=== PATIENT | male | born 1970 ===

== ENCOUNTER 2021-09-06 01:57 | Outpatient (CLI) | payer OTHER, SELFPAY | END 2021-09-06 01:58 | disposition home or self-care (01) | LOC: AMB 09-12 20:42 | PROVIDERS: Visit Provider Family Medicine | DX: R07.89 Other chest pain (principal); R11.2 Nausea with vomiting, unspecified; R06.02 Shortness of breath; R51.9 Headache, unspecified; R10.9 Unspecified abdominal pain | CPT/HCPCS: A0425; A0427 ==

== ENCOUNTER 2021-09-06 02:30 | Observation (INO) | payer OTHER, SELFPAY ==
[2021-09-06] VITALS (9 sets, daily range): BP systolic 120–150; BP diastolic 79–100; PULSE 53–71; RESP 16–18; TEMP 36.6–36.7; O2SAT 93–98; BMI 26.5
--- NOTE | 2021-09-06 03:12 | CRLHL7_ITS ---
For Patients: As a result of the Century Cures Act, medical imaging exams and procedure reports are released immediately into your electronic medical record. You may view this report before your referring provider. If you have questions, please contact your health care provider. INDICATION: Status post fall with loss of consciousness. COMPARISON: None available TECHNIQUE: CT examination of the cervical spine is performed without contrast using spiral technique. 1.5 mm thick axial, sagittal and coronal reconstructions were made. Please note that all CT scans at this facility use dose modulation, iterative reconstruction, and/or weight-based dosing when appropriate to reduce radiation dose to as low as reasonably achievable. FINDINGS: : There is no sign of fracture or subluxation. The cervical vertebral bodies and intervertebral discs are normal in height and are in anatomic alignment. There is no sign of prevertebral soft tissue swelling. There is minimal anterior ligamentous ossification at C4-5 and C5-6. The airway structures are normal in appearance. The visualized skull base is normal in appearance. The visualized inferior brain is normal in appearance for the patient`s age. The apices of the lungs are clear. IMPRESSION: Nearly normal CT of the cervical spine with no sign of acute injury. Minimal anterior ligamentous ossification at C4-5 and C5-6. Please note that all CT scans at this facility use dose modulation, iterative reconstruction, and/or weight-based dosing when appropriate to reduce radiation dose to as low as reasonably achievable. Dictated by Mariano Sung MD @ 09/06/2021 3:56:53 AM (Electronically Signed)
--- NOTE | 2021-09-06 03:12 | CRLHL7_ITS ---
For Patients: As a result of the Century Cures Act, medical imaging exams and procedure reports are released immediately into your electronic medical record. You may view this report before your referring provider. If you have questions, please contact your health care provider. INDICATION: Status post fall. Loss of consciousness. COMPARISON: None available. TECHNIQUE: CT examination of the head was performed with 3 mm thick axial and 2 mm thick coronal and sagittal sections without intravenous contrast. Images were obtained from the vertex of the skull through the skull base, and I examined the images with the brain and bone windows. Please note that all CT scans at this facility use dose modulation, iterative reconstruction, and/or weight-based dosing when appropriate to reduce radiation dose to as low as reasonably achievable. FINDINGS: : The brain is normal in appearance for the patient`s age on today`s study, with no sign of mass lesion, mass effect, hemorrhage, or edema. The ventricles and sulci are normal in appearance for the patient`s age. The visualized portions of the orbits are normal in appearance. There is a mild amount of fluid in the dependent portions of both maxillary sinuses from mild acute sinusitis. The rest of the visualized portions of the paranasal sinuses and mastoids are clear. The osseous structures are normal in their appearance with no sign of abnormality in the skull base or calvarium. IMPRESSION: No sign of closed head injury. Normal noncontrast CT appearance of the brain for the patient`s age. Mild acute bilateral maxillary sinusitis. Please note that all CT scans at this facility use dose modulation, iterative reconstruction, and/or weight-based dosing when appropriate to reduce radiation dose to as low as reasonably achievable. Dictated by Mariano Sung MD @ 09/06/2021 3:54:52 AM (Electronically Signed)
--- NOTE | 2021-09-06 03:14 | CRLHL7_ITS ---
For Patients: As a result of the Century Cures Act, medical imaging exams and procedure reports are released immediately into your electronic medical record. You may view this report before your referring provider. If you have questions, please contact your health care provider. HISTORY: Chest pain COMPARISON: None available FINDINGS: A portable erect AP lordotic view of the chest was obtained at 0335 hours. The lungs are clear. No focal or diffuse infiltrates are present. There is no sign of pneumothorax or abnormality of the ribs to correlate with the history of chest pain. The heart is normal in size. The mediastinum is normal in appearance. The osseous structures are normal in appearance for the patient`s age. IMPRESSION: Normal portable chest single view. Dictated by Mariano Sung MD @ 09/06/2021 3:52:35 AM (Electronically Signed)
--- NOTE | 2021-09-06 03:21 | ED_ITS ---
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 Patient states that today he was not feeling well but cannot give me any specific details. He states he went to bed early after eating and woke up around midnight dizzy and nauseated. He was vomiting copiously in the toilet in his hotel room and the next thing he knew he woke up on the ground. He notes that the back of his head does hurt. He does not know how long he may have been out. He does agree that the left side of his neck causes him discomfort. Patient states that he did have chest pain across his entire upper at bedtime associated with difficulty breathing. The chest discomfort is still somewhat present but the shortness of breath has improved. He denies numbness or tingling of the extremities. Seems to be perseverating about the dizziness. I do ask him if this is similar to vertigo versus lightheadedness. He states he has symptoms of both. He then does tell me that the room is moving when he tries to sit up. I do ask him if he has any noise in his ears when this occurs and he states yes. He has not had recent fever or chills cough cold congestion. He does not know if he has had any COVID contacts but notes that he goes through multiple states all the time. During our conversation Júnior seems somewhat confused at times. He is alert to person place and time but does not answer my questions clearly. Last known well time greater than 5 hours ago. Onset (ago): hour(s) Location: head Severity: mild Related Data Home Medications Medication Instructions Recorded Confirmed No Known Home Medications 09/06/21 09/06/21 Allergies Allergy/AdvReac Type Severity Reaction Status Date / Time No Known Drug Allergies Allergy Verified 09/06/21 02:53 Review of Systems Status of ROS: Reports: 10 or more systems reviewed and unremarkable except as noted in History and below Const: Denies: fever, chills or fatigue Eyes: Denies: change in vision ENMT: Reports: neck pain and vertigo; Denies: difficulty swallowing or hoarseness Cardio: Reports: chest pain and shortness of breath with exertion (Improved); Denies: palpitations or swelling of feet/ankles Resp: Reports: shortness of breath (Improved) GI: Reports: nausea and vomiting; Denies: abdominal pain or difficulty swallowing : Denies: painful urination Musculo: Reports: neck pain; Denies: back pain or extremity pain Integ/Breast: Denies: rash Neuro: Reports: dizziness and vertigo; Denies: headache or numbness in extremities Endo: Denies: fatigue PFSH PFS Social History Smoking Status: Never smoker Do you use any of these nicotine containing products: None How often do you have a drink containing alcohol: never How often do you have six or more drinks on one occasion: Never AUDIT-C Alcohol total score: 0 Exam Narrative: Exam Narrative: Past medical history: Previous abdominal surgeries. Family history: Siblings with history of cardiac disease Social history: Occasional tobacco use. Occasional alcohol use. No drug use. From [place]. Const: Vital Signs, click to edit/add: Vital Signs - 24 hr 09/06/21 02:46 09/06/21 03:00 09/06/21 04:00 Temperature 97.8 F Pulse Rate [Left P ulse Oximeter] 71 64 58 L Respiratory Rate 18 18 16 Blood Pressure [Ri ght Upper Arm] 141/99 H 150/100 H 134/94 H Pulse Oximetry 95 96 94 09/06/21 04:30 09/06/21 06:00 Temperature Pulse Rate [Left P ulse Oximeter] 61 62 Respiratory Rate 16 16 Blood Pressure [Ri ght Upper Arm] 146/93 H 120/91 H Pulse Oximetry 93 93 Documenting provider has reviewed patient's vital signs: yes Common normals: oriented x3 Exam limitations: altered mental status General appearance: cooperative, well developed and anxious; no odor of alcohol detected Nutritional appearance: overweight Orientation/consciousness: Yes awake, Yes oriented to person, Yes oriented to place and Yes oriented to time HENMT: Common normals: normocephalic, external ears normal, external nose normal, moist oral mucous membranes and oropharynx normal Head and scalp: normocephalic and other (Area of tenderness to the a septal scalp. No evidence of laceration) Face and sinus: normal facial exam and face symmetric Nose: external nose normal External ear: external ears normal Mouth: oral and palatal mucosa normal and tongue normal Throat: posterior oropharynx normal Eye: Common normals: PERRL, conjunctivae normal and no scleral icterus General eye: normal appearance of both eyes Conjunctiva: conjunctiva(e) normal Pupil: PERRL Neck & C-Spine: Common normals: supple General: other (Left paraspinous musculature is tender. No midline tenderness) Resp: Common normals: normal respiratory effort and clear to auscultation bilaterally Auscultation: clear to auscultation bilaterally Cardio: Common normals: regular rate and regular rhythm Rate: regular rate Rhythm: regular rhythm GI: Common normals: soft to palpation and non-tender Palpation: soft Extremity: Common normals: normal to inspection and full ROM Neuro: Jacobo Coma Scale: document GCS findings Welsh coma scale eye opening: Spontaneous (4) Jacobo coma scale verbal response: Orientated (5) Jacobo coma scale motor response: Obey commands (6) Jacobo coma scale total score: 15 Common normals: oriented x3, no focal motor deficits and no sensory deficits noted Sensorium/orientation: awake, oriented to person, oriented to place and oriented to time Cranial nerves: CN normal except as noted Coordination/balance: Romberg test negative and other (Unable to sit up in bed without becoming dizzy) Speech: speech normal Gait (neuro): unable to assess gait Motor exam: strength 5/5 throughout and no pronator drift Coordination: other (Unable to sit up in bed without becoming dizzy) Pupil exam: Normal pupillary reactivity/response: bilateral Psych: Common normals: thought process normal Appearance: grossly normal Attitude: evasive and agitated (Fearful) Activity/motor behavior: appropriate eye contact Speech: slow Mood and affect: tearful and fearful Thought process: normal thought process Thought content: normal thought content Attention/concentration: attention grossly intact Memory/cognition: memory grossly intact Insight: fair Judgement: judgment good Skin: Common normals: no rashes or lesions noted General skin exam: no rashes or lesions noted Course Course Hospital Course: At this time patient is presenting to the ED with complaints of chest pain that had been associated with shortness of breath as well as a syncopal episode. Patient is having a difficult time answering questions completely. We will obtain a head CT as well as cervical spine CT due to the discomfort he is feeling. He does not know how long he may have been on the bathroom floor. He awoke with the symptoms at midnight. He had gone to bed earlier in the night last known well was at We will obtain laboratory values to include a CBC, comprehensive panel, CRP, urinalysis, D-dimer, COVID and chest x-ray. Patient will be given normal saline as well as Benadryl 25 mg IV P Reevaluation(s) Reevaluation #1: Patient continues to tell me that he does not feel well but is very challenging to get any details about that from him. I did inform him that his head and cervical CTs were within normal limits. We do have a negative D-dimer now although he still states he has some chest discomfort. Troponin is negative and EKG is reassuring. Continued examination shows that there is a reddish brown substance against the right TM. I am unable to ascertain if this is a ruptured TM and what I am seeing is blood or if this is cerumen. Patient has related to me the history of this evening at least 3-4 times at this point. He also got up to go to CT scan and then went back and sat on the bed thinking he that he was following our instructions. I have asked to speak to Neurology at [facility] as I a.m. wondering if this patient needs an MRI which we are unable to provide here at this time. All other laboratory values are reassuring at this time. Time: 04:15 Consultations Consultation #1: Post CT of the head and neck which were normal I did have the pleasure of speaking with [facility] regarding this patient. I am concerned regarding potential vertigo indicating a cerebellar stroke. At this time it is suggested that I pursue a CTA. He does not feel that we need to do an emergent MRI and thus transfer the patient but can have this done later today. Laboratory values include was normal white count of 6.72. Negative COVID. Troponins have been negative as well as a CRP. Vital Signs Vital signs: Initial Vital Signs Temperature 97.8 F 09/06/21 02:46 Temperature Source Temporal Artery Scan 09/06/21 02:46 Pulse Rate 71 09/06/21 02:46 Pulse Rhythm 09/06/21 02:46 Respiratory Rate 18 09/06/21 02:46 Blood Pressure 141/99 H 09/06/21 02:46 Blood Pressure Mean 113 09/06/21 02:46 Pulse Oximetry 95 09/06/21 02:46 Oxygen Delivery Method 09/06/21 02:46 Vital Signs Temperature 97.8 F 09/06/21 02:46 Pulse Rate 71 09/06/21 02:46 Respiratory Rate 18 09/06/21 02:46 Blood Pressure 141/99 H 09/06/21 02:46 Pulse Oximetry 95 09/06/21 02:46 Temperature 97.8 F 09/06/21 02:46 Pulse Rate 62 09/06/21 06:00 Respiratory Rate 16 09/06/21 06:00 Blood Pressure 120/91 H 09/06/21 06:00 Pulse Oximetry 93 09/06/21 06:00 Medical Decision Making MDM Narrative Medical decision making narrative: 1. Vertigo with vomiting-patient has no nystagmus and no focal neurological deficits with the exception of some altered speech pattern and thought processes. Head CT reassuring at this time. MRI pending. Last known well 1930 hours last night. Onset of symptoms at midnight which awoke patient patient has received aspirin 325 mg her hospitalist. Benadryl 25 mg IV seems to have helped this patient. As patient has no evidence of intracranial bleed, will give aspirin 325 mg p.o. this time. No evidence of atrial fibrillation on monitor. 2. Closed head injury-patient has small area of tenderness in bump on a occipial scalp. Patient also is noted to have questionable blood in the right ear canal. No evidence of basilar skull fracture on CT. 3. Chest pain-patient noted chest pain that was especially intense and associated with shortness of breath while vomiting. This has improved. Patient did state that he was having a hard time breathing but his pulse was normal as was his oximetry. Patient's did share with me that he does suffer from anxiety. 4. Disposition-admission to the floor as patient is unable to care for himself at this time. MRI suggested by Neurology. 0805: I did speak with Dr. Phil Zaidi our hospitalist who will be seeing this patient on the floor. Differential Diagnosis Differential Diagnosis: Benign positional vertigo, cerebellar stroke, COVID, acute coronary syndrom Medical Records Medical records narrative: No med records available for review Lab Data Lab results reviewed: Yes I reviewed the patient's lab results Labs: Lab Results 09/06/21 09/06/21 09/06/21 Range/Units 03:00 03:00 03:00 WBC 6.72 (4.50-11.00) K/uL RBC 5.38 (4.30-5.90) m/uL Hgb 17.4 (13.5-17.5) gm/dL Hct 49.0 (37.0-53.0) % MCV 91 (80-100) fL MCH 32 (26-34) pg MCHC 36 (32-36) gm/dL RDW Coeff of Cintia 11.9 (11.5-15.5) % Plt Count 208 (140-440) K/uL Neut % (Auto) 54.4 (42.0-72.0) % Lymph % (Auto) 28.3 (20-44) % [place] % (Auto) 9.4 (0.0-11.0) % Eos % (Auto) 6.0 (0.0-7.0) % Baso % (Auto) 0.7 (0.0-3.0) % Neut # (Auto) 3.66 (1.7-7.0) K/uL Lymph # (Auto) 1.90 (0.90-2.90) K/uL [place] # (Auto) 0.60 (0.00-0.90) K/UL Eos # (Auto) 0.40 (0.00-0.50) K/uL Baso # (Auto) 0.05 (0.00-0.30) K/uL Abs Immat Gran (auto) 0.08 (0.00-0.30) K/uL D-Dimer Quant (PE/DVT) < 0.27 (0.00-0.50) ug/ml Sodium 137 (135-149) mmol/L Potassium 3.9 (3.6-5.1) mmol/L Chloride 107 (96-114) mmol/L Carbon Dioxide 23 (20-32) mmol/L BUN 13 (5-24) mg/dL Creatinine 1.0 (0.5-1.5) mg/dL Estimated GFR 92 ml/min Glucose 112 (60-115) mg/dL Calcium 10.1 (8.4-10.6) mg/dL Total Bilirubin 0.7 (0.1-1.5) mg/dL AST 16 (12-35) U/L ALT 33 (4-50) U/L Alkaline Phosphatase 72 (40-150) U/L C-Reactive Protein < 0.5 L (0.5-1.0) mg/dL Total Protein 6.4 (6.0-8.3) g/dL Albumin 3.9 (3.3-5.0) g/dL Urine Color (Yellow) Urine Appearance (Clear) Urine pH (5.0-8.5) Ur Specific Avant (1.000-1.030) Urine Protein (Negative) Urine Glucose (UA) (Negative) Urine Ketones (Negative) Urine Blood (Negative) Urine Nitrite (Negative) Urine Bilirubin (Negative) Urine Urobilinogen (0.2-1.0) Ur Leukocyte Esterase (Negative) Urine Opiates Screen (Negative) Ur Oxycodone Screen (Negative) Urine Methadone Screen (Negative) Ur Propoxyphene Screen (Negative) Ur Barbiturates Screen (Negative) U Tricyclic Antidepress (Negative) Ur Phencyclidine Scrn (Negative) Ur Amphetamines Screen (Negative) U Methamphetamines Scrn (Negative) U Benzodiazepines Scrn (Negative) Urine Cocaine Screen (Negative) U Marijuana (THC) Screen (Negative) Ur Drug Screen Comment SARS-CoV-2 (PCR) (Negative) Influenza Type A (PCR) (Negative) Influenza Type B (PCR) (Negative) POC Troponin I (0.01-0.04) ng/ml 09/06/21 09/06/21 09/06/21 Range/Units 03:05 03:30 04:43 WBC (4.50-11.00) K/uL RBC (4.30-5.90) m/uL Hgb (13.5-17.5) gm/dL Hct (37.0-53.0) % MCV (80-100) fL MCH (26-34) pg MCHC (32-36) gm/dL RDW Coeff of Cintia (11.5-15.5) % Plt Count (140-440) K/uL Neut % (Auto) (42.0-72.0) % Lymph % (Auto) (20-44) % [place] % (Auto) (0.0-11.0) % Eos % (Auto) (0.0-7.0) % Baso % (Auto) (0.0-3.0) % Neut # (Auto) (1.7-7.0) K/uL Lymph # (Auto) (0.90-2.90) K/uL [place] # (Auto) (0.00-0.90) K/UL Eos # (Auto) (0.00-0.50) K/uL Baso # (Auto) (0.00-0.30) K/uL Abs Immat Gran (auto) (0.00-0.30) K/uL D-Dimer Quant (PE/DVT) (0.00-0.50) ug/ml Sodium (135-149) mmol/L Potassium (3.6-5.1) mmol/L Chloride (96-114) mmol/L Carbon Dioxide (20-32) mmol/L BUN (5-24) mg/dL Creatinine (0.5-1.5) mg/dL Estimated GFR ml/min Glucose (60-115) mg/dL Calcium (8.4-10.6) mg/dL Total Bilirubin (0.1-1.5) mg/dL AST (12-35) U/L ALT (4-50) U/L Alkaline Phosphatase (40-150) U/L C-Reactive Protein (0.5-1.0) mg/dL Total Protein (6.0-8.3) g/dL Albumin (3.3-5.0) g/dL Urine Color Yellow (Yellow) Urine Appearance Clear (Clear) Urine pH 6.5 (5.0-8.5) Ur Specific Avant 1.015 (1.000-1.030) Urine Protein Negative (Negative) Urine Glucose (UA) Negative (Negative) Urine Ketones Negative (Negative) Urine Blood Negative (Negative) Urine Nitrite Negative (Negative) Urine Bilirubin Negative (Negative) Urine Urobilinogen 0.2 (0.2-1.0) Ur Leukocyte Esterase Negative (Negative) Urine Opiates Screen (Negative) Ur Oxycodone Screen (Negative) Urine Methadone Screen (Negative) Ur Propoxyphene Screen (Negative) Ur Barbiturates Screen (Negative) U Tricyclic Antidepress (Negative) Ur Phencyclidine Scrn (Negative) Ur Amphetamines Screen (Negative) U Methamphetamines Scrn (Negative) U Benzodiazepines Scrn (Negative) Urine Cocaine Screen (Negative) U Marijuana (THC) Screen (Negative) Ur Drug Screen Comment SARS-CoV-2 (PCR) Negative SARS-CoV-2 (Negative) Influenza Type A (PCR) Negative PCR FLU A (Negative) Influenza Type B (PCR) Negative PCR FLU B (Negative) POC Troponin I 0.00 L (0.01-0.04) ng/ml 09/06/21 Range/Units 04:43 WBC (4.50-11.00) K/uL RBC (4.30-5.90) m/uL Hgb (13.5-17.5) gm/dL Hct (37.0-53.0) % MCV (80-100) fL MCH (26-34) pg MCHC (32-36) gm/dL RDW Coeff of Cintia (11.5-15.5) % Plt Count (140-440) K/uL Neut % (Auto) (42.0-72.0) % Lymph % (Auto) (20-44) % [place] % (Auto) (0.0-11.0) % Eos % (Auto) (0.0-7.0) % Baso % (Auto) (0.0-3.0) % Neut # (Auto) (1.7-7.0) K/uL Lymph # (Auto) (0.90-2.90) K/uL [place] # (Auto) (0.00-0.90) K/UL Eos # (Auto) (0.00-0.50) K/uL Baso # (Auto) (0.00-0.30) K/uL Abs Immat Gran (auto) (0.00-0.30) K/uL D-Dimer Quant (PE/DVT) (0.00-0.50) ug/ml Sodium (135-149) mmol/L Potassium (3.6-5.1) mmol/L Chloride (96-114) mmol/L Carbon Dioxide (20-32) mmol/L BUN (5-24) mg/dL Creatinine (0.5-1.5) mg/dL Estimated GFR ml/min Glucose (60-115) mg/dL Calcium (8.4-10.6) mg/dL Total Bilirubin (0.1-1.5) mg/dL AST (12-35) U/L ALT (4-50) U/L Alkaline Phosphatase (40-150) U/L C-Reactive Protein (0.5-1.0) mg/dL Total Protein (6.0-8.3) g/dL Albumin (3.3-5.0) g/dL Urine Color (Yellow) Urine Appearance (Clear) Urine pH (5.0-8.5) Ur Specific Avant (1.000-1.030) Urine Protein (Negative) Urine Glucose (UA) (Negative) Urine Ketones (Negative) Urine Blood (Negative) Urine Nitrite (Negative) Urine Bilirubin (Negative) Urine Urobilinogen (0.2-1.0) Ur Leukocyte Esterase (Negative) Urine Opiates Screen Negative (Negative) Ur Oxycodone Screen Negative (Negative) Urine Methadone Screen Negative (Negative) Ur Propoxyphene Screen Negative (Negative) Ur Barbiturates Screen Negative (Negative) U Tricyclic Antidepress Negative (Negative) Ur Phencyclidine Scrn Negative (Negative) Ur Amphetamines Screen Negative (Negative) U Methamphetamines Scrn Negative (Negative) U Benzodiazepines Scrn Negative (Negative) Urine Cocaine Screen Negative (Negative) U Marijuana (THC) Screen Negative (Negative) Ur Drug Screen Comment See Note SARS-CoV-2 (PCR) (Negative) Influenza Type A (PCR) (Negative) Influenza Type B (PCR) (Negative) POC Troponin I (0.01-0.04) ng/ml Imaging Data Chest x-ray: Attestation: I have reviewed the pertinent imaging results. My impression: No evidence of known moan E a bit poor inspiration. Radiologist's impression: No evidence of pneumonia CT scan - head: My impression: No evidence of intracranial bleeding. Radiologist's impression: No evidence of acute stroke or intracranial bleeding CTA HEAD and Neck: Attestation: I have reviewed the pertinent imaging results. Radiologist's impression: No acute findings Cervical spine CT: Attestation: I have reviewed the pertinent imaging results. My impression: I do not note any acute fractures. Radiologist's impression: Chronic findings but no acute fractures. ECG Data Attestation: I personally reviewed and interpreted this ECG as follows: (EKG 1. Shows sinus rhythm at a rate of 68. No acute ST or T-wave changes are noted. Normal QT interval. Second EKG by my read shows sinus rhythm at a rate of [address] or T-wave changes.) Prior ECG tracings: not available for review Discharge Plan Discharge Clinical Impression: Syncope, Chest pain Patient Disposition: Admitted As Inpatient
[2021-09-06] MEDS: diphenhydrAMINE 50 MG/ML inj 25 MG IVP (03:24)
[2021-09-06] MEDS: 0.9 % SODIUM CHLORIDE 1000 ml 1,000 ML IV (03:24)
[2021-09-06 03:35] LABS: Basophils Absolute Auto 0.05 K/uL (0.00-0.30); Basophils Percent Auto 0.7 % (0.0-3.0); Hemoglobin* 17.4 gm/dL (13.5-17.5); Immature Granulocytes Abs Auto 0.08 K/uL (0.00-0.30); Lymphocytes Percent Auto 28.3 % (20-44); Mean Corpuscular HGB Conc 36 gm/dL (32-36); Mean Corpuscular Hemoglobin 32 pg (26-34); Mean Corpuscular Volume 91 fL (80-100); Monocytes Percent Auto 9.4 % (0.0-11.0); Neutrophils Absolute Auto 3.66 K/uL (1.7-7.0); Neutrophils Percent Auto 54.4 % (42.0-72.0); Platelet Count* 208 K/uL (140-440); RDW Coefficient of Variation % 11.9 % (11.5-15.5); Red Blood Count 5.38 m/uL (4.30-5.90); White Blood Count* 6.72 K/uL (4.50-11.00)
[2021-09-06 03:36] LABS: Slide Review Reflex No
[2021-09-06 03:48] LABS: Albumin* 3.9 g/dL (3.3-5.0); Chloride* 107 mmol/L (96-114)
[2021-09-06 03:49] LABS: Potassium* 3.9 mmol/L (3.6-5.1); Sodium* 137 mmol/L (135-149)
[2021-09-06 03:51] LABS: Bilirubin Total* 0.7 mg/dL (0.1-1.5); Estimated Glomerular Filt Rate 92 ml/min
[2021-09-06 03:52] LABS: Alanine Aminotransferase* 33 U/L (4-50); Alkaline Phosphatase* 72 U/L (40-150); Aspartate Amino Transferase* 16 U/L (12-35); Blood Urea Nitrogen* 13 mg/dL (5-24); Calcium* 10.1 mg/dL (8.4-10.6); Carbon Dioxide* 23 mmol/L (20-32); Glucose* 112 mg/dL (60-115); Total Protein* 6.4 g/dL (6.0-8.3)
[2021-09-06 03:53] LABS: D Dimer Quantitative* < 0.27 ug/ml (0.00-0.50)
[2021-09-06 04:04] LABS: C Reactive Protein* < 0.5 mg/dL (0.5-1.0)
[2021-09-06 04:11] LABS: PCR FLU A Negative PCR FLU A (Negative); PCR FLU B Negative PCR FLU B (Negative)
[2021-09-06 04:31] LABS: SARS PCR* Negative SARS-CoV-2 (Negative)
--- NOTE | 2021-09-06 04:32 | TELERAD_ITS ---
Patient: LEONILA HOYT Facility:?[facility] Patient ID:?[id number] Site Patient ID:?[id number]. Site :?[id number] Study:?CT-Head Angio -09/06/2021 4:53:35 AM Ordering Physician:?Baldev Swann Final Report: INDICATION: Altered mental status. TECHNIQUE: CTA head with contrast bolus tracking and 3D MIP reconstruction. FINDINGS: There is normal opacification of the intracranial vasculature. There is no significant intracranial stenosis. There is no large vessel occlusion. No aneurysm is identified. IMPRESSION: Unremarkable head CTA. Please note that all CT scans at this facility use dose modulation, iterative reconstruction, and/or weight-based dosing when appropriate to reduce radiation dose to as low as reasonably achievable. Dictated by Geoffrey Boles MD @ 09/06/2021 11:08:00 AM Signed by:?Geoffrey Boles MD @09/06/2021 11:08:00 AM (Electronic Signature)
--- NOTE | 2021-09-06 04:32 | TELERAD_ITS ---
Patient: LEONILA HOYT Facility:?[facility] Patient ID:?[id number] Site Patient ID:?[id number]. Site :?[id number] Study:?CT-Neck Angio Angio -09/06/2021 4:53:51 AM Ordering Physician:?Baldev Swann Final Report: INDICATION: Altered mental status. TECHNIQUE: CTA neck with contrast bolus tracking and 3D MIP reconstruction. FINDINGS: There is atherosclerotic plaque in the right ICA bulb. There is no stenosis. There is no evidence for dissection. The left carotid artery is widely patent. Both vertebral arteries are widely patent as well. The soft tissues of the neck are within normal limits. The cervical spine is in normal alignment. IMPRESSION: Carotid atherosclerotic disease without stenosis. Please note that all CT scans at this facility use dose modulation, iterative reconstruction, and/or weight-based dosing when appropriate to reduce radiation dose to as low as reasonably achievable. Dictated by Geoffrey Boles MD @ 09/06/2021 11:10:31 AM Signed by:?Geoffrey Boles MD @09/06/2021 11:10:31 AM (Electronic Signature)
[2021-09-06 04:49] LABS: Appearance Urine Clear (Clear); Bilirubin Urine Negative (Negative); Blood Urine Negative (Negative); Color Urine Yellow (Yellow); Glucose Urine Negative (Negative); Ketones Urine Negative (Negative); Leukocyte Esterase Urine Negative (Negative); Nitrite Urine Negative (Negative); Protein Urine Negative (Negative); Specific Gravity Urine 1.015 (1.000-1.030); Urobilinogen Urine 0.2 (0.2-1.0); pH Urine 6.5 (5.0-8.5)
[2021-09-06 04:56] LABS: Amphetamine Screen Urine Negative (Negative); Barbiturate Screen Urine Negative (Negative); Benzodiazepines Screen Urine Negative (Negative); Cannabinoid Screen Urine Negative (Negative); Cocaine Screen Urine Negative (Negative); Methadone Screen Urine Negative (Negative); Methamphetamines Screen Urine Negative (Negative); Opiate Screen Urine Negative (Negative); Oxycodone Screen Urine Negative (Negative); Phencyclidine Screen Urine Negative (Negative); Tricyclic Antidepressant Urine Negative (Negative)
--- NOTE | 2021-09-06 04:57 | ED.NURSE ---
House Sup given heads up
--- NOTE | 2021-09-06 06:32 | ED.NURSE ---
pt on phone, verbal from pt to speak to about cares. MD on phone now with .
[2021-09-06] MEDS: ASPIRIN 81 MG TAB.CHEW 364 MG PO (07:04)
[2021-09-06] MEDS: LORazepam 2 MG/ML inj 0.5 MG IVP (07:04)
[2021-09-06] MEDS: ASPIRIN 81 MG TAB.CHEW 324 MG PO (07:14)
--- NOTE | 2021-09-06 07:14 | ED.NURSE ---
324 mg of ASA given to pt. initial order incorrect, informed, changed order and documented correctly in APR.
--- NOTE | 2021-09-06 07:15 | W.PC.EDHO ---
Primary Language: Preferred Language: Orientation Status: x Alert & Oriented [] Slight Confusion [] Known Dx Dementia Transfers By: [x] Assist of 1 [] Assist of 2 [] Lift Active Medications Generic Name Dose Route Start Last Admin Trade Name Freq PRN Reason Stop Dose Admin Aspirin 324 mg 09/06/21 07:07 09/06/21 07:14 Aspirin 81 Mg Tab.Chew PO 09/06/21 07:08 324 mg ONCE ONE Administration Lorazepam 0.5 mg 09/06/21 06:56 09/06/21 07:04 Lorazepam 2 Mg/Ml Inj IVP 09/06/21 06:57 0.5 mg ONCE ONE Administration Discontinued Medications Generic Name Dose Route Start Last Admin Trade Name Freq PRN Reason Stop Dose Admin Aspirin 364 mg 09/06/21 09:00 09/06/21 07:04 Aspirin 81 Mg Tab.Chew PO 324 mg DAILY BONNY Administration Diphenhydramine HCl 25 mg 09/06/21 03:12 09/06/21 03:24 Diphenhydramine 50 Mg/Ml Inj IVP 09/06/21 03:13 25 mg ONCE ONE Administration Sodium Chloride 1,000 mls @ 1,000 mls/hr 09/06/21 03:13 09/06/21 05:20 0.9 % Sodium Chloride 1000 Ml IV 09/06/21 04:12 Infused .Q1H BONNY Infusion Description of Symptoms ED Triage Present Problem pt woke up at 0000 with CP 6/10, N/V. EMS gave Description zofran 4 mg IV. Pt has 18 gauge to left AC. Pt reports passing out in restroom while vomiting, pt reports being on his knees during event. Pt woke up on floor. ED Triage Date of Onset of 09/06/21 Symptoms Jacobo Coma Scale Jacobo coma scale total score 15 Pain Pain Description [Medial Chest Tightness ] Pain Radiation Location [ across chest Medial Chest] Pain Intensity [Medial Chest] 6 Pain Intensity 2 Pain Intensity 2 Pain Intensity 6 Pain Scale Used [Medial Chest] Numeric (1 - 10) Pain Scale Used Numeric (1 - 10) Pain Scale Used Numeric (1 - 10) Pain Scale Used Numeric (1 - 10) IV Insertion/Site Date of IV Line Insertion [ 09/06/21 Left Antecubital] Oxygen Administration Pulse Oximetry 93 Pulse Oximetry 93 Pulse Oximetry 94 Pulse Oximetry 96 Pulse Oximetry 95 Oxygen Delivery Method Room Air Oxygen Delivery Method Room Air Oxygen Delivery Method Room Air Oxygen Delivery Method Room Air Oxygen Delivery Method Room Air Cardiac Monitoring EKG Method 12 Lead EKG Method 12 Lead
[2021-09-06 08:00] LABS: Troponin I* < 0.01 ng/mL (0.01-0.04)
[2021-09-06] MEDS: PANTOPRAZOLE SODIUM 40 MG INJ IVP (09:41)
--- NOTE | 2021-09-06 10:30 | CRLHL7_ITS ---
For Patients: As a result of the Century Cures Act, medical imaging exams and procedure reports are released immediately into your electronic medical record. You may view this report before your referring provider. If you have questions, please contact your health care provider. Indication: Altered mental status. Trauma. Technique: Multiplanar, multisequence MRI of the brain was performed without intravenous contrast. Comparison: CTA head and neck 09/06/2021. CT head 09/06/2021. Findings: The corpus callosum, pituitary gland and clivus appears intact. Craniocervical junction appears preserved. No cerebellar tonsillar ectopia. There is no restricted diffusion. No intracranial hemorrhage. The ventricles are proportionate to the cerebral sulci. The 4th ventricle appears midline. The basal cisterns appear patent. No abnormal extra-axial fluid collection identified. There is no intracranial mass, abnormal mass-effect or midline shift identified. Both globes are preserved. Mild paranasal sinus mucosal disease. Impression: No acute intracranial process. Dictated by Speedy Rodney MD @ 09/06/2021 12:20:50 PM (Electronically Signed)
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
--- NOTE | 2021-09-06 17:05 | PC.NURSE ---
Addendum entered by Lacie Gaxiola RN 09/06/21 17:39: IV removed prior to discharge at 1610. Intact and patent. Original Note: Pt. was alert and oriented x3, very soft spoken and speech is delayed but is normal for pt. Very cooperative and concerned about what is wrong with him. Pt. states that he still feels a little sick. Pt. rated pain about a 3/10 has mild headache and chest still feels like it hurts, verbalized he did not need any pain meds. Pt. stated still feeling a little nauseous and rest was helping. Pt. verbalized he did not have much of an appetite. Pt. ate 25% of lunch w/o N/V. MRI done 1130 and w/no significant findings. Pt. ambulated in hallway 1500 and tolerated well. Discharge instructions and patient belongings forms signed. Pt. was discharged at 1610. Pt. ambulated to ED w/aide to an awaiting Taxi cab. Pt. returned to [facility] where his truck was parked.
== END 2021-09-06 16:30 | disposition home or self-care (01) ==
LOC: ED 06:35 → MEDSURG 06:42
PROVIDERS: Admitting Provider Family Medicine; Emergency Provider Family Medicine; Visit Provider Family Medicine
DX: R07.9 Chest pain, unspecified (principal); S09.90XA Unspecified injury of head, initial encounter; R11.10 Vomiting, unspecified; R55 Syncope and collapse; R06.02 Shortness of breath; R42 Dizziness and giddiness; I49.8 Other specified cardiac arrhythmias; R47.89 Other speech disturbances; F17.210 Nicotine dependence, cigarettes, uncomplicated
CPT/HCPCS: 36415; 70450; 70496; 70498; 70551; 71045; 72125; 80053; 80306; 81003; 82947; 84484; 85025; 85379; 86140; 87502; 87635; 93005; 96361; 96372; 96374; 96375; 96376; 99285; A9270; C9113; G0378; J1200; J2060; J7030; Q9967